=== PATIENT | female | born 1995 | race Caucasian/White ===

== ENCOUNTER 2017-11-09 06:40 | Inpatient (IN) ==
--- OUTSIDE RECORDS SUMMARY | 2017-11-09 06:47 | External Medical Summary ---
:1995 Author Organization [employer] Care Team Providers Name Role Phone Xena Wilks Provider Role Unavailable Allergies, Adverse Reactions, Alerts Substance Reaction Event Type N.K.D.A. 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 Medications Medication Code System Code Instructions Start Date End Date Status Dosage Sprintec 28 [facility] 60505-681 0.25-35 MG-MCG 1 tablet 6-58 Orally Once a day Amoxicillin NDC 24072-462 500 MG Orally 1 capsule 9-05 every 8 hrs Procedures Procedure Coding System Code Date Lidocaine injection CPT-4 J2001 July 30, 2014 INJECTION (plus drug) CPT-4 97944 July 30, 2014 EXCISION, BENIGN SKIN LESION (trunk,arms or legs) CPT-4 70336 July 30, 2014 Vital Signs Date/Time: July 30, 2014 Height 62 in BMIPercentile 93.45 % Weight 159.0 lbs Temperature 98.4 F Blood Pressure Diastolic 77 mm Hg Blood Pressure Systolic 108 mm Hg Cardiac Monitoring Heart Rate 94 /min BMI 29.08 Index Wt Percentile 89.26 % Respiratory Rate 16 /min Results No Known Results Summary Purpose eClinicalWorks Submission
[2017-11-09] MEDS ORDERED: ONDANSETRON ODT 4 MG TABLET PO PRN (07:27)
[2017-11-09] MEDS ORDERED: ACETAMINOPHEN 500 MG TABLET PO PRN ×2 (07:45→12:57)
[2017-11-09] MEDS ORDERED: MAG-AL + SIM ORAL LIQUID 30ml PO PRN ×2 (07:45→12:57)
[2017-11-09] MEDS ORDERED: CALCIUM CARBONATE Chewable 500mg TABLET PO PRN ×2 (07:45→12:57)
[2017-11-09] MEDS ORDERED: LIDOCAINE 1% (10mg/ml) 2mL INJ PF SDV ID PRN (07:45)
[2017-11-09] MEDS ORDERED: CARBOPROST 250 MCG/ML INJECTION IM PRN (07:45)
[2017-11-09] MEDS ORDERED: D5LR 1,000 ML IV SCH (07:45)
[2017-11-09] MEDS ORDERED: METHYLERGONOVINE 0.2 MG/ML INJECTION IM PRN (07:45)
[2017-11-09] MEDS: LR 1,000 ML IV PRN ×2 (08:04→09:53)
[2017-11-09 08:20] VITALS: BMI 31.5
[2017-11-09] MEDS ORDERED: ROPIVACAINE 1% 10MG/ML INJ 200 MG, SUFentanil 50 MCG in NS 100 ML EPI PRN (09:05)
[2017-11-09] MEDS ORDERED: DiphenhydrAMINE 50 MG/ML INJECTION IVP PRN (09:05)
[2017-11-09] MEDS ORDERED: ONDANSETRON 4 MG/2 ML INJECTION IVP PRN (09:05)
[2017-11-09] MEDS ORDERED: NALOXONE 0.4 MG/ML INJECTION IVP PRN (09:05)
--- NOTE | 2017-11-09 09:05 | Anesthesia Preoperative Report ---
Anesthesia Epidural/Spinal Rec - Date and Time Date: 11/09/17 Preoperative Diagnosis: labor Procedure: Labor Epidural Plan: Epidural - Vital Signs Vital Signs: Temperature 97.7 F 11/09/17 08:30 Pulse Rate 81 11/09/17 08:30 Respiratory Rate 20 11/09/17 08:30 Blood Pressure 140/77 H 11/09/17 08:30 Pulse Oximetry 99 11/09/17 08:30 NPO since: 010 doughnut /Para: P:0 Heart Rate: 124 - Medictaions & Allergies Inpatient Medications: Current Medications Acetaminophen (Tylenol) 500 - 1,000 mg PO Q4H PRN PRN Reason: Pain Al Hydroxide/Mg Hydroxide (Maalox Plus) 30 ml PO Q3H PRN PRN Reason: Indigestion Calcium Carbonate (Tums) 500 - 1,000 mg PO Q2H PRN PRN Reason: Indigestion Carboprost Tromethamine (Hemabate) 250 mcg IM O PRN PRN Reason: .Downtime Dextrose/Lactated Ringer's (Dextrose 5%-Lactated Ringers) 1,000 mls @ 125 mls/ hr IV .Q8H ABIDA Lactated Ringer's (Lactated Ringers) 1,000 mls @ 999 mls/hr IV .Q1H1M PRN Last Admin: 11/09/17 08:04 Dose: 999 mls/hr Lidocaine HCl (Xylocaine-Mpf 1% Vial) 0.2 mg ID O PRN PRN Reason: IV Start Methylergonovine Maleate (Methergine) 0.2 mg IM O PRN Misoprostol (Cytotec) 800 mcg SC ONCE PRN Ondansetron HCl (Zofran Odt Tablet) 4 mg PO Q4H PRN PRN Reason: Nausea &/or vomiting Last Admin: 11/09/17 07:29 Dose: 4 mg Allergies/Adverse Reactions: Allergies Allergy/AdvReac Type Severity Reaction Status Date / Time No Known Allergies Allergy Unverified 07/30/15 08:11 - Home Medications Home Medications: Home Medications Medication Instructions Recorded Confirmed Type NO ROUTINE MEDS #0 05/25/16 History Vitamins 1 tab PO DAILY 10/11/17 10/11/17 History Tums 1 tab PO PRN PRN 10/11/17 History - Medical History Respiratory: Reports: Asthma (no meds) Neuro/Musculoskeletal: Reports: Depression (hx of; no meds) Other History: Reports: Now - Surgical History Anesthesia Reactions: None Hx Family Anesthesia Reaction: No History of Motion Sickness: No - Social History Smoking Status: Former smoker - Pertinent Findings Lab Data: CBC and BMP 11/09/17 08:00 - Physical Exam Respiratory Exam: lungs clear - Airway Assessment Mallampati Score: II TMD: 3 Fingerbreadths Overall Assessment: may be difficult intubation - ASA ASA Score: 2 - Discussion Discussion: Discussed risks/options/alternatives of anesthesia and questions answered. Patient consents. Nursing pain assessment noted. Attestation Statement: Prior to the delivery of any anesthetic medication, I examined the patient, developed the plan, obtained the patient's consent and discussed the risk and benefits of the procedure with the patient/guardian.
[2017-11-09] MEDS ORDERED: DiphenhydrAMINE 25 MG CAPSULE PO PRN (12:57)
[2017-11-09] MEDS ORDERED: RHOPHYLAC - PHARMACY CONSULT MC ONE (12:57)
[2017-11-09] MEDS ORDERED: OXYTOCIN DRIP 30 UNIT/500 ML ML IV PRN (12:57)
[2017-11-09] MEDS ORDERED: Oxycodone/Acetaminophen 5/325 1 TAB PO PRN (12:57)
[2017-11-09] MEDS ORDERED: HYDROCORTISONE 2.5% CREAM 30gm RECTALLY PRN (12:57)
[2017-11-09] MEDS ORDERED: IBUPROFEN 800 MG TABLET PO PRN (12:57)
[2017-11-09] MEDS ORDERED: OXYTOCIN DRIP 30 UNIT/500 ML ML IV SCH (13:00)
--- NOTE | 2017-11-09 13:10 | OB/GYN Procedure Note ---
Delivery date: 11/09/17 Intrapartal events: None Induction method: none Delivery monitor: external FHT, external uterine Route of delivery: Laceration description: Labial Delivery repair: chromic Estimated blood loss (mL): 200 Anesthesia type: Epidural Disposition: floor - Baby 1 gender: Male presentation: Vertex Placenta delivery description: Spontaneous cord vessel description: 3 Vessels at 1 minute: 8 at 5 minutes: 9
--- NOTE | 2017-11-10 06:38 | Anesthesia Postoperative Note ---
- Date and Time Date: 11/10/17 Time: 06:37 - Status Patient Participated in Evaluation: Other (report by RN) Vital Signs: Temperature 98.3 F 11/10/17 00:55 Pulse Rate 77 11/10/17 00:55 Respiratory Rate 14 11/10/17 00:55 Blood Pressure 132/66 11/10/17 00:55 Pulse Oximetry 100 11/09/17 10:18 Respiratory Function: Airway Patent Cardiovascular Function: Regular Pulse Mental Status: Alert and Oriented Pain Intensity: 2 Hydration: Taking PO Fluids Complications During Recover: None Apparent - Follow-Up Instructions Instructions: Per Surgeon
[2017-11-10 06:59] VITALS: RESP 16; O2SAT 98
--- NOTE | 2017-11-10 07:10 | OB/GYN Progress Note ---
OB-PP Progress Note - General PPD1 Maternal Group B Strep: Negative Maternal blood type: O- Maternal Rubella Status: Immune - Subjective Date: 11/10/17 Lochia: Minimal Pain: controlled Voiding: voiding Nausea or Vomiting Present: No - Objective Vital Signs: Last Vital Signs Temp 98.0 F 11/10/17 06:58 Pulse 82 11/10/17 06:58 Resp 16 11/10/17 06:58 BP 119/69 11/10/17 06:58 Pulse Ox 98 11/10/17 06:58 Urine Output: good General: alert and oriented Cardiovascular: regular rate,rhythm Respiratory: non-labored Abdomen: fundus firm, non-tender Extremities: non-tender Edema: none Laboratory: Laboratory Results - last 24 hr 11/09/17 11/09/17 11/09/17 08:00 08:00 13:02 WBC 12.2 H RBC 4.13 Hgb 12.8 Hct 37.7 MCV 91.3 MCH 31.0 MCHC 34.0 RDW Std Deviation 42.1 Plt Count 327 MPV 9.4 Hgb /Adult Ratio Blood Type O Negative Antibody Screen Negative RhIG Candidate? Is a candidate 11/09/17 15:09 WBC RBC Hgb Hct MCV MCH MCHC RDW Std Deviation Plt Count MPV Hgb /Adult Ratio 0.0000 Blood Type Antibody Screen RhIG Candidate? - Assessment Assessment: SPRONALD (Dismissal to home today. ) - Plan Plan: routine care, rhophylac
--- NOTE | 2017-11-10 07:18 | Pharmacy Consult ---
Pharmacy Consult-Rhophylac - Laboratory Information 11/09/17 11/09/17 11/09/17 08:00 13:02 15:09 Hgb /Adult Ratio 0.0000 Blood Type O Negative RhIG Candidate? Is a candidate - Consult Information Rh FACTOR CONSULT: Mother Blood Type = 0 NEGATIVE Child Blood Type = A POSITIVE Hgb / Adult Ratio = 0.0000 Will give Rho D Immunglobulin 300mcg IV x 1 dose. Thank you.
--- NOTE | 2017-11-10 08:09 | Labor and Delivery Note ---
DATE OF DELIVERY 11/09/2017 DELIVERY NOTE There was a spontaneous vaginal delivery over intact perineum with epidural anesthesia of a viable male infant, named Christopher Machuca, with Apgars of 8/9 /9. There was spontaneous delivery of the placenta, 200 ml EBL. A right labial was repaired with 3-0 chromic in a running fashion. Anabelle presented to Labor & Delivery at 39 weeks and 3 days gestational age in active labor. She progressed from 3 cm to 4 cm, got an epidural and progressed from 4 cm to 6 cm over the next two hours. She then progressed from 6 to complete and +1 station over the next 3 hours. She pushed for approximately 50 minutes and delivered without difficulty. She is Rh negative--received RhoGAM [facility] . [facility]
[2017-11-10] MEDS ORDERED: RHO(D) IMMUNE GLOBULIN 300 MCG/2 ML INJECTION IVP ONE (08:30)
[2017-11-10] MEDS ORDERED: PRENATAL VITAMIN TABLET PO SCH (09:00)
[2017-11-10] MEDS ORDERED: DOCUSATE CALCIUM 240 MG CAPSULE PO SCH (09:00)
[2017-11-10 15:49] VITALS: BP 108/64; PULSE 78; TEMP 97.4
== END 2017-11-10 18:43 | disposition home or self-care (01) | DRG 775 ==
LOC: OBOBS 06:40 → MC 06:40
PROVIDERS: ADMIT Obstetrics & Gynecology; ATTEND Obstetrics & Gynecology